=== PATIENT | male | born 1960 | race Caucasian/White ===

== ENCOUNTER 2025-03-15 11:58 | Outpatient (OUT) | payer OTHER, SELFPAY ==
--- OUTSIDE RECORDS SUMMARY | 2025-03-12 19:21 | XMS_ITS | Continuity of Care Document ---
Author Organization [facility] Address [address] [place] [address] Phone Care Team Providers Care Finance Lecturer Name Role Phone Martín Santhosh Alarcon DO Primary Care Provider Basil Sloan DO Attending Provider [phone] Care Teams Patient Care Team Team Status: Active Member Role/Relationship Status Dates Santhosh Resendiz DO Primary Care Provider Active Visit Care Team Team Status: Inactive Member Role/Relationship Status Dates Santhosh Resendiz DO Primary Care Provider Active St art: March 08, 2025 End: March 08, 2025Basil Sloan DOAttending ProviderActiveStart: March 08, 2025 End: March 08, 2025 Visit Care Team Team Status: Inactive Member Role/Relationship Status Dates Santhosh Resendiz DO Primary Care Provider Active St art: March 08, 2025 End: March 08, 2025Basil Sloan DOAttending ProviderActiveStart: March 08, 2025 End: March 08, 2025 Visit Care Team Team Status: Inactive Member Role/Relationship Status Dates Santhosh Resendiz DO Primary Care Provider Active St art: March 11, 2025 End: March 11, 2025Basil Sloan DOAttending ProviderActiveStart: March 11, 2025 End: March 11, 2025 Patient Care Team Team Status: Inactive Member Role/Relationship Status Dates Santhosh Resendiz DO Primary Care Provider Active St art: March 12, 2025 End: March 12, 2025Basil Sloan DOAttending ProviderActiveStart: March 12, 2025 End: March 12, 2025 Chief Complaint and Reason for Visit Chief Complaint Admit Date NEW RT SHOULDER INJURY MRI NOM[facility] March 08, 2025 8:49am M25.511 - Pain in right shoulder Decembe r 2024 8:52am M19.011 M75.101. March 11, 2025 2 :55pm Right shoulder pain right should osteart hritis March 12, 2025 10:05am Reason for Visit Admit Date Bicipital tendinitis, right shoulder Dec ember 2024 8:49am Primary osteoarthritis, right shoulder D ecember 2024 8:49am Tear of right infraspinatus tendon Decem xiao 2024 8:49am Tear of right supraspinatus tendon Decem xiao 2024 8:49am Allergies, Adverse Reactions, Alerts Allergen Type Severity Reaction Last Updated Verified Status Comments No Allergy Information Available Allergy Unknown Unknown Reaction March 08, 2025 9:07am Yes Active no allergy to Lasix Social History Smoking Status Unknown if ever smoked Observation Status Observation Response Date of Response Legal Sex Male (finding) Sex Assigned At [facility] 1960 Problems Active Problems Problem Diagnosis/Recorded Date Onset Date Stat Primary osteoarthritis, right shoulder March 08 025 9:36am Unknown Active Tear of right supraspinatus tendon March 08, 2025 9:34am Unknown Active Tear of right infraspinatus tendon March 08, 2025 9:34am Unknown Active Bicipital tendinitis, right shoulder March 08 9:39am Unknown Active Right shoulder pain March 08, 2025 7:27am Unknown Active Medications Medication Status Dose Units Route Directions Qty Days Refills S tart Date Stop Date End Date Reason(s) Instructions Adherence Atorvastatin 10 mg tablet Active 10 MG PO Daily March 08, 2025 12:00amUnknownDiltiazem Hcl 240 mg capsule,extended release 24hrActiveMGPODecember 2024 12:00amUnknownPhentermine 37.5 mg tabletActive MGPODecemb2024 12:00amUnknownIrbesartan-Hydrochlorothiazide 300-12.5 mg tabletActiveTABPODecember 2024 12:00amUnknownHydrochlorothiazide 12.5 mg tabletActiveMGPODecember 2024 12:00amUnknownAspirin 81 mg qvehzqGyvqef45SF PODailyDecemb2024 12:00amUnknown Procedures Procedure Date Performed Status XR shoulder RT min 2V* March 08, 2025 8:52am completed CT shoulder RT wo con March 11, 2025 3:01pm completed Relevant Diagnostic Tests and/or Laboratory Data Laboratory Results Test Collection Date/Time Result Date/Time Result Interpretation Reference Range Result Comment Performing Site Corrected White Blood Count March 12, 2025 10:31am March 12, 2025 11:54am 5.5 10*3/uL 4.1-10.5[facility] [id number] [address] [facility] 35543Vetyszjdtph WBC CountDecemb2024 10:31amDecember 2024 11:54am5.5 10*3/uL4.1-10.5FHol[facility] [id number] [address] [place] [address] 11559Bpp Blood CountDecember 2024 10:31amDecember 2024 11:54am4.80 10*6/uL3.90-5.60[facility] [id number] [address] [place] [address] 37507PrnjloeufpHwjveyig 2024 10:31amDecember 2024 11:54am 14.3 g/dL13.0-17.0[facility] [id number] [address] [place] [address] 61622AydtlasxibTkzemreb 2024 10:31amDecember 2024 11:54am 40.8 %38.8-50.0[facility] [id number] [address] [place] [address] 92531Mwzt Corpuscular VolumeDecember 2024 10:31amDecember 2024 11:54am85.1 fL83.5-101[facility] [id number] [address] [place] [address] 23033Hnpw Corpuscular HemoglobinDecember 2024 10:31amDecember 2024 11:54am29.7 pg27.5-35.2FHol[facility] [id number] [address] [facility] 13347Umod Corpuscular Hemoglobin ConcentMarch 12, 2025 10:31am March 12, 2025 11:54am35.0 g/dL32.5-35.6FHol[facility] [id number] [address] [facility] 70662Yai Cell Distribution WidthMarch 12, 2025 10:31amMarch 12, 2025 11:54am13.2 %12.0-14.8[facility] [id number] [address] [facility] 69002Zevfeueb CountMarch 12, 2025 10:31amMarch 12, 2025 11:83dk215 10*3/vE524-356TfelqwslaOhiohealth [facility]ering[facility] [id number] [address] [facility] 18439Pkqw Platelet VolumeMarch 12, 2025 10:31amMarch 12, 2025 11:54am8.0 fL6.6-10.1FHol[facility] [id number] [address] [facility] 28620Kowsnjyyzuh (%) (Auto)March 12, 2025 10:31amMarch 12, 2025 11:54am63.7 %.[facility] [id number] [address] [facility] 27132Newqibekrzg (%) (Auto)March 12, 2025 10:31amDe2024 11:54am21.1 %.[facility] [id number] [address] [facility] 11219Kskjmnqao (%) (Auto)March 12, 2025 10:31amMarch 12, 2025 11:54am10.1 %.[facility] [id number] [address] [facility] 84560Micurymtiuc (%) (Auto)March 12, 2025 10:31amDe2024 11:54am4.1 %.[facility] [id number] [address] [facility] 49991Pdruwteai (%) (Auto)March 12, 2025 10:31amMarch 12, 2025 11:54am1.0 %.[facility] [id number] [address] [facility] 53724Phamdkrck RBC Relative Count (auto)March 12, 2025 10:31am March 12, 2025 11:54am0.2 /100{WBC}0-0.5FHol[facility] [id number] [address] [place] [address] 44699Ojfxxcjobzj # (Auto)March 12, 2025 10:31amMarch 12, 2025 11:54am3.5 10*3/uL1.8-7.7FHol[facility] [id number] [address] [place] [address] 05953Yscamnpcefu # (Auto)March 12, 2025 10:31amMarch 12, 2025 11:54am1.2 10*3/uL1.00-4.8[facility] [id number] [address] [facility] 42745Wdodxghuw # (Auto)March 12, 2025 10:31amMarch 12, 2025 11:54am0.6 10*3/uL0.0-0.8[facility] [id number] [address] [facility] 88048Sfnowqywoiu # (Auto)March 12, 2025 10:31amMarch 12, 2025 11:54am0.2 10*3/uL0.0-0.45[facility] [id number] [address] [place] [address] 52159Dwlqzfagr # (Auto)March 12, 2025 10:31amMarch 12, 2025 11:54am0.1 10*3/uL0.0-0.2FHol[facility] [id number] [address] [place] [address] 76121Szapukz LevelMarch 12, 2025 10:31amMarch 12, 2025 12:07ap810 mg/dLAbove high -210TMJ recommended reference rangeRandom Glucose Reference Range is dependent on time and content of last meal. Glucose of more than 200 mg/dL in a nonstressed, ambulatory subject supports the diagnosisof Diabetes Mellitus.[facility] [id number] [address] [facility] 64266Zrqgj Urea NitrogenDeceer 2024 10:31amDecember 2024 12:12pm17 mg/dL7-25[facility] [id number] [address] [facility] 90563VggsyyvibmRdpnrfma 2024 10:31amDecember 2024 12:12pm 0.72 mg/dL0.70-1.30[facility] [id number] [address] [facility] 75562Pgnzfafcx GFR (CKD-EPI)March 12, 2025 10:31amDece2024 12:12pm> 60.0 mL/MinOhiohealth Pickerington Methodist Hospital Ctr [id number] [address] [facility] 31251Bsbyxl LevelDecemb2024 10:31amDecember 2024 12:64jl509 mmol/S696-290CeqwhgbfqOhiohealth Pickerington [facility] [id number] [address] [facility] 55904Pbnufujll LevelDecember 2024 10:31amDecemb2024 12:12pm4.2 mmol/L3.5-5.1FHol[facility] [id number] [address] [facility] 46192Iroesfji LevelDece2024 10:31amDecember 2024 12:24ga324 mmol/M64-258DgwlqizpnOhiohealth Pickerington [facility] [id number] [address] [facility] 06349Bwbmpo Dioxide LevelDece2024 10:31amDecember 2024 12:12pm26.4 mmol/L21.0-31.0[facility] [id number] [address] [facility] 65418Cvlun GapDece2024 10:31amDece2024 12:12pm 10.8 mEq/L6.0-15.0[facility] [id number] [address] [facility] 09777Xslvrgq LevelDecember 2024 10:31amDecember 2024 12:12pm9.1 mg/dL8.6-10.3FHol[facility] [id number] [address] [facility] 47080Vqcay ProteinDecember 2024 10:31amDecember 2024 12:12pm6.7 g/dL6.4-8.9[facility] [id number] [address] [facility] 97873FfiierbHfaaoecl 2024 10:31amDecember 2024 12:12pm4.0 g/dL3.5-5.7FHol[facility] [id number] [address] [facility] 64691CrhweiadPmjigbmm 2024 10:31amDecember 2024 12:12pm2.7 g/dLOhiohealth [facility]ering[facility] [id number] [address] [facility] 53270Rbvnwtg/Globulin RatioDecember 2024 10:31amDecember 2024 12:12pm1.5FHolzer Health System [facility]tr [id number] [address] [facility] 33924Nzwln BilirubinDecember 2024 10:31amDecember 2024 12:12pm0.5 mg/dL0.3-1.0[facility] [id number] [address] [facility] 15733Khjboorif Amino Transf (AST/SGOT)March 12, 2025 10:31am March 12, 2025 12:12pm23 U/S51-54PhtjhuhbrOhiohealth Pickerington Methodist Hospital [facility]tr [id number] [address] [facility] 97363Gdzgzci Aminotransferase (ALT/SGPT)March 12, 2025 10:31am March 12, 2025 12:12pm32 U/L7-52[facility] [id number] [address] [facility] 22363Fdvafilg PhosphataseDecember 2024 10:31amDecember 2024 12:12pm63 U/F71-513VtelmosgcOhiohealth Pickerington Methodist Hospital [facility]tr [id number] [address] [facility] 80652Kvmtqiyd Creatinine Clearance (ChemDecember 2024 10:31am March 12, 2025 12:12pmN/[facility] [id number] [address] [place] [address] Diagnostic Imaging Reports Author Madi Rivera [facility] 2024 10:54amReport Dictated Date/TimeDictated ByStatusRadiology ReportDequail [facility] 2024 10:54am Madi Rivera II [facility] [address] [place] [address] XRay Report Signed Patient: Santhosh Zambrano MR#: [id number] : 1960 Acct:[id number] Age/Sex: 64 / M ADM Date: 5 Loc: [facility] Room: Type: [facility] Attending Dr: Basil Sloan DO Copies to: Basil Sloan DO~ Ordering Provider: Basil Sloan DO Date of Service: 03/08/25 XR/XR shoulder RT min 2V*: M25.511 - Pain in right shoulder XR shoulder RT min 2V* 03/08/2025 9:29 AM SIGNS AND SYMPTOMS: Fall, right shoulder pain PROTOCOL: 4 views of the right shoulder COMPARISON: 01/28/2025 FINDINGS: Hypertrophic changes are noted in the acromioclavicular joint. There is moderate narrowing of the ulnohumeral joint with spurring along the inferior margin of the articular surfaces. There is subcortical cystic change in the greater tuberosity of the humeral head suggesting underlying rotator cuff pathology. No fracture or dislocation. Visualized right hemithorax is intact XR/XR shoulder RT min 2V* IMPRESSION: Moderate degenerative changes are noted in the right shoulder with findings suggesting underlying rotator cuff pathology. No fracture or dislocation. Impression dictated by: Madi Rivera M.D. 03/08/2025 10:55 AM Dictation Location: [place] [address] Transcribed By: [facility] 03/08/25 1055 Dictated By: Madi Rivera II, MD 03/08/25 1054 Signed By: <Electronically signed by Madi Rivera II, MD in OV> 03/08/25 1055 Author Madi Rivera [facility] 2024 3:30pmReportDictated Date/TimeDictated ByStatusRadiology ReportDecequail run behavioral health 2024 3:30pmMadi Rivera II [facility] [place] [address] [place], [place] [address] CT Scan Report Signed Patient: Santhosh Zambrano MR#: [id number] : 1960 Acct:[id number] Age/Sex: 64 / M ADM Date: 5 Loc: CT Room: Type: [facility] CLI Attending Dr: Basil Sloan DO Copies to: Basil Sloan DO~ Ordering Provider: Basil Sloan DO Date of Service: 03/11/25 CT/CT shoulder RT wo con: M19.011 - Primary osteoarthritis, right shoulder CT shoulder RT wo con 03/11/2025 3:21 PM SIGNS AND SYMPTOMS: Preop right shoulder, osteoarthritis, supraspinatus tear TECHNIQUE: Multidetector CT axial slices of the right shoulder without IV contrast. Multiplanar and 3-D reformats were performed and viewed on a separate workstation and reviewed to further define anatomy and possible pathology. CT was performed with one or more of the following dose reduction techniques: Automated exposure control, adjustment of the mA and/or kV according to patient size, or use of iterative reconstruction technique. COMPARISON: 03/08/2025 FINDINGS: Similar hypertrophic changes are noted in the acromioclavicular joint. There is narrowing of the glenohumeral joint similar to the prior exam. Subcortical cystic change is noted at the greater tuberosity humeral head consistent with underlying rotator cuff pathology. There is mild cranial subluxation of the humeral head in respect to the glenoid with narrowing of the subacromial space consistent with underlying rotator cuff pathology. Degenerative changes are noted in the cervical spine. CT/CT shoulder RT wo con IMPRESSION: Osteoarthritic changes are noted in the right shoulder similar to the prior radiographs. Findings are consistent with underlying rotator cuff pathology. No fracture or dislocation. Impression dictated by: Madi Rivera M.D. 03/11/2025 3:34 PM Dictation Location: [place] [address] Transcribed By: MITA 03/11/25 1534 Dictated By: Madi Rivera II, MD 03/11/25 1530 Signed By: <Electronically signed by Madi Rivera II, MD in OV> 03/11/25 1534 Vital Signs Vital Reading Result Reference Range Collection Date/Time Height 69 [in_i] March 08, 2025 9:94awYlkcup902.73 kgDecember 2024 9:47amBMI (Body Mass Index)40.6 kg/b0Yjompetk 2024 9:47am Advance Directives Advance Directive Response Recorded Date/ Time Advance Directives No May 10:28am Insurance Providers Guarantor Trudy Harmon Address [address] [place] [phone] Info.Home Phone: Coverage Status Update:2025 Payer Group Member ID Coverage Type Subscriber Relationship to Subscriber Effective Date Expiration Date MMO Id: [id number] Heyman , P Id: [id number] [address] [phone] Home Phone: Email: [email or web address] [address] [place] [address] Work Phone: [facility] [employer] Id: [id number] Heyman , P Id: [id number] [address] [phone] Home Phone: Email: [email or web address] [employer] Id: [id number] Heyman , P Id: [id number] [address] [facility] [address] Home Phone: Email: [email or web address] Heyman , P Id: [id number] [address] [facility] [address] Home Phone: Email: [email or web address] Encounter Location(s) Arrival/Admit Date Discharge/Departure Date Discharge/Departure Disposition Provider(s) Departed Physician/ Provider Office Visit -[facility] March 08, 2025 8:49am March 08, 2025 9:55am Discharged to home care or self care (routine discharge) Basil Sloan DO Departed Clinical -XRay [facility] March 08, 2025 8:52am March 08, 2025 8:53am Discharged to home care or self care (routine discharge) Basil Sloan DO Departed Clinical -CT Scan [facility] March 11, 2025 2:55pm March 11, 2025 2:56pm Discharged to home care or self care (routine discharge) Basil Sloan DO Departed Clinical -Lab [facility] March 12, 2025 10:05am March 12, 2025 10:06am Discharged to home care or self care (routine discharge) Basil Sloan DO Recent Diagnosis Onset Date Admit Date Bicipital tendinitis, right shoulder Unknown March 08, 2025 8:49am Primary osteoarthritis, right shoulder Unknown March 08, 2025 8:49am Tear of right infraspinatus tendon Unknown March 08, 2025 8:49am Tear of right supraspinatus tendon Unknown March 08, 2025 8:49am Assessments Diagnosis Onset Date Resolution Status Admit Date Bicipital tendinitis, right shoulder acuteDecember 2024 8:49amPrimary osteoarthritis, right shoulderacute March 08, 2025 8:49amTear of right infraspinatus tendonacutece2024 8:49amTear of right supraspinatus tendonacuteDecember 2024 8:49am Plan of Treatment Author Basil Sloan [facility] HospitalAutholiver[facility]2024 10:28amDiscussed with the patient on his symptoms, exam, and imaging. Likely etiologies of the patient's symptoms were discussed. Patient has symptoms consistent with a right rotator cuff tear and right shoulder arthritis. We discussed surgical versus conservative treatment options. Surgery would include a rotator cuff repair versus a reverse shoulder arthroplasty. Given his activity level, I recommend a rotator cuff repair if he wishes to proceed with surgery. We did discuss the possibility of continued pain due to the degree of the arthritis. He no longer wishes to live in his current condition and wishes to proceed with surgery. We will proceed with a right shoulder arthroscopy with rotator cuff repair and biceps tenodesis. We discussed the risks, benefits, and alternatives to surgery in general, including the potential outcomes with foregoing treatment altogether. The risks include, but are not limited to, the risk of anesthesia up to and including , infection, bleeding, tendon damage, nerve damage, vascular damage, stiffness, weakness, loss of range of motion, arthrofibrosis, failure to alleviate symptoms, worsening of symptoms, continued pain, continued mechanical symptoms, arthritic pain, post traumatic arthritis, wound healing problems, formation of cutaneous scars secondary to surgical incisions, deep venous thrombosis, pulmonary embolism, reflex sympathetic dystrophy, unforeseen complications and the need for further surgery. The specific risks inherent to shoulder surgery were discussed further. These include, but are not limited to: failure of any repair (labrum, biceps, rotator cuff), symptomatic hardware, chondrolysis, fracture, instability (glenohumeral or acromioclavicular), unforeseen complications and the need for further or revision surgery. Management of any biceps pathology was also addressed. If the long head of the biceps is substantially torn, tenotomy versus tenodesis may be performed. Specific risks of biceps cosmetic deformity and/or spasm were discussed. In the event of an irreparable rotator cuff tear, partial repair/reconstruction with dermal allograft augmentation will be considered. We discussed in detail the rehabilitation associated with this procedure, in terms of frequency and duration. We discussed the use of the sling postoperatively, and the fact that driving a motor vehicle is not advisable while in the sling. The importance of proper rehabilitation in the overall outcome of the surgery was emphasized. The amount of time needed off from activities (work, school, sports, exercise, and leisure activity) was discussed. The patient understands that in no way does surgical intervention guarantee return to activities (athletic, work, leisure, etc.) at the pre-injury level. Guarantees were neither stated nor implied. The patient understands and has appropriate expectations. We did discuss the risks and benefits of forgoing treatment altogether, and living with symptoms as they are. The patient understood and wishes to proceed. Informed consent was obtained, questions were entertained and answered to the best of my ability. My biggest concern is his concomitant glenohumeral arthritis. We did state that he will continue to have pain from the arthritis however his range of motion and strength should very much improved. Procedure: right shoulder arthroscopy with rotator cuff repair and biceps tenodesis, possible augmentation Antibiotics: Ancef DVT ppx: Ambulation Same Day Surgery: Yes Bed: Regular OR bed, lateral pegboard, fishing pole Instruments needed: Arthrex rotator cuff anchors, biceps tenodesis kit Future Tests Future scheduled test information is unavailable Pending Tests Pending diagnostic test information is unavailable Future Visits Future appointment information is unavailable Future Procedures Future procedure information is unavailable Future Medications Future medication information is unavailable Patient Instructions Patient instructions are unavailable
== END 2025-03-15 11:59 | disposition home or self-care (01) ==
LOC: PST 11:58
PROVIDERS: Visit Provider Physician Assistant
DX: Z01.818 Encounter for other preprocedural examination (principal); M25.511 Pain in right shoulder; M19.011 Primary osteoarthritis, right shoulder

== ENCOUNTER 2025-03-18 10:46 | Day surgery (SDC) | payer OTHER, SELFPAY ==
[2025-03-18] VITALS (15 sets, daily range): BP systolic 128–172; BP diastolic 69–86; PULSE 62–83; TEMP 36.3–36.5; O2SAT 89–98; BMI 41.4
[2025-03-18 10:56] LABS: Hematocrit 43.8 % (42.0-54.0); Hemoglobin 14.9 g/dL (14.0-18.0); Immature Granulocytes Abs Auto 0.10 10^3/uL (0.00-0.03); Immature Granulocytes Pct Auto 1.5 % (0.0-0.5); Lymphocytes Absolute Auto 1.7 10^3/uL (1.2-3.8); Mean Corpuscular HGB Conc 34.0 g/dL (29.9-35.2); Mean Corpuscular Hemoglobin 29.3 pg (25.9-34.0); Mean Corpuscular Volume 86.2 fL (80.0-94.0); Platelet Count 274 10^3/uL (150-450); Red Blood Count 5.08 10^6/uL (4.70-6.10); White Blood Count 6.7 10^3/uL (4.0-11.0)
--- NOTE | 2025-03-18 12:23 | PC.NURSE ---
1212: timeout completed as documented. pt placed on 2L O2 via nasal cannula per policy,pt connected to vitals machine and positioned per anesthesia. block began at 1155 and was completed at 1210. pt tolerated well without complaints,vitals monitored throughout procedure. pt with bed in lowest position with siderails up and call light within reach. pt will be monitored until taken back to the OR.
[2025-03-18] MEDS: TRANEXAMIC ACID 1,000 MG in 0.9 % SODIUM CHLORIDE 100 ML 440 MG IV ×2 (12:34→13:43)
--- NOTE | 2025-03-18 13:48 | XR_ITS ---
[place] [id number] Patient Name: DONNELL PEREZ MRN: [id number] date: 1960 Sex: M Assigned Patient [facility]: [facility] Current Patient Location: Accession/Order Number: [id number] Exam Date: 03/18/2025 12:45 Report Date: 03/18/2025 21:10 At the request of: PORFIRIO MACIAS DO Procedure: XR shoulder RT 1V A single view right shoulder postoperative assessment Adequate reverse shoulder arthroplasty without hardware complication. Adequate bony alignment without acute displaced fracture. Soft tissue postsurgical changes. XR/XR shoulder RT 1V IMPRESSION: Uncomplicated reverse right shoulder arthroplasty Impression dictated by: Red Rice M.D. 03/18/2025 9:10 PM Dictation Location: [place] [address] Electronically authenticated by: [id number] Date: 03/18/2025 21:10
[2025-03-18] MEDS: BUPIVACAINE HCL 0.25% PF 25 MG/10 ML VIAL 20 ML INJ (14:07)
--- NOTE | 2025-03-18 14:23 | W.PM.OPNOTE ---
Surgery Operative Note Operative Note Procedure Date: 03/18/25 Time Out Performed: yes Pre-op Diagnosis: Right glenohumeral arthritis, right rotator cuff tear Post-op Diagnosis: same as pre-op Procedures performed: 1. Right reverse shoulder arthroplasty Anesthesia: DANICA Primary Surgeon: Basil Sloan Complications: none Estimated blood loss (mL): 100 Findings: Right glenohumeral arthritis, right rotator cuff tear Specimens: None Drains: none Indications for Procedures: Santhosh is a 64-year-old male who was seen outpatient for right shoulder pain. He rotator cuff tear and moderate glenohumeral arthritis. We discussed treatment options in depth including rotator cuff repair versus arthroplasty. He failed conservative management we discussed continued conservative management versus surgical intervention. Risks, benefits, complications, procedure detail, convalescence, reasonable expectations were discussed in length. All questions were answered. Patient wishes to pursue surgical intervention, and consent was obtained. Patient was scheduled for surgery. Detailed description of Procedure: Patient was evaluated in the preoperative area. The correct patient, procedure, laterality was confirmed. Patient underwent a peripheral nerve block by anesthesia staff. Patient was then transported back to the operative suite and positioned supine on the operative table. He then underwent general anesthesia with no complications. Patient was then positioned in a beachchair position. All bony prominences were well-padded. The head and neck were positioned in a comfortable stable position. The left shoulder was prepped and draped in normal sterile fashion. A timeout was performed. Patient received preoperative antibiotics as well as 1 g of IV TXA. The procedure began by making incision on the skin and the deltopectoral approach. The cephalic vein was identified in the interval between the deltoid and the pectoralis major was identified and opened. The lateral aspect of the conjoined tendon was mobilized and the subscapularis tendon was exposed as well as the 3 sisters blood vessels. The vessels were cauterized to ensure no bleeding throughout the surgery. The biceps tendon was found situated in the groove. This was dissected and tenotomized with the distal portion being tenodesed to the superior portion of the pectoralis major tendon. A complete subscapularis peel was performed as the shoulder was externally rotated. The shoulder was dislocated at this point and retractors were placed. Using an intramedullary guide, the appropriate neck cut was performed on the humerus. A protective guide was placed on the humerus. Next retractors were placed to expose the glenoid. The labrum was sharply debrided exposing the outer rim of the glenoid. Using a patient-specific guide, the starting pin was placed in the appropriate position on the glenoid. The glenoid was prepped appropriately and a press-fit glenoid component was placed using a central screw. Excellent fit was established with a component. Peripheral screws were placed to fix the glenoid component. Next, the templated glenosphere was placed and secured to the glenoid baseplate. Next the humerus was exposed again and humeral stem preparation was performed for an inlay humeral stem. A trial was placed. The shoulder was taken through range of motion and found to be stable and excellent range of motion. The trials were removed and the shoulder was irrigated. Final humeral implant and tray was placed and the shoulder was reduced again. Final range of motion confirmed excellent range of motion and excellent fit of the components. An intraoperative x-ray confirmed appropriate position of the components. The wound was copiously irrigated. Drill holes were placed in the lesser tuberosity and the subscapularis tendon was repaired to the lesser tuberosity. A nonabsorbable 0 FiberWire was used to close the deltopectoral interval in a running fashion. Subcutaneous skin was closed using 2-0 Monocryl. A 3-0 Monocryl was used for subcuticular running suture. Skin was closed with glue. A silver impregnated dressing was placed on the incision. A Cryo/Cuff and UltraSling was placed on the patient. Patient was then awoken from anesthesia and transported to PACU in stable condition. Counts are correct. Case was clean. No complications were encountered throughout the procedure. Postoperative plan: Patient will be discharged from PACU to home they will be seen by PT and OT post operatively in PACU. Patient will be no lifting in a sling to the operative extremity. Ambulation is encouraged to prevent blood clots. Dressing can be removed on postoperative day 7. Patient will follow-up in 10 to 14 days for evaluation. Outpatient therapy will start 4 weeks after surgery following reverse shoulder arthroplasty rehab protocol. 1. Tornier Perform Reverse Augmented baseplate 25mm, 15 degree augmentation 2. Tonier Perform Reverse 39 mm glenosphere +0 3. Tornier Perform humeral stem size 3 4. Tornier Perform humeral insert +3 thickness 5. Tornier screws 6.5 x 30 mm central, 5mm x 26 mm superior, 30 mm inferior, 22 mm anterior Basil Sloan DO Orthopedic Surgeon [facility] Senior [employer] Analyst: Chantelle Temple Attending Doc Confirm Attending Attestation: Yes
--- NOTE | 2025-03-18 15:13 | PC.NURSE ---
Patient is sleep but awakens with conversation and questions. Verbalizes no pain
== END 2025-03-18 17:18 | disposition home or self-care (01) ==
PROVIDERS: Anesthesiology; PCP Family Medicine; Visit Provider Physician Assistant
PROC: (CPT 1638; principal; 2025-03-18 12:00)
DX: M19.011 Primary osteoarthritis, right shoulder (principal); M75.101 Unspecified rotator cuff tear or rupture of right shoulder, not specified as traumatic; M25.511 Pain in right shoulder; M75.21 Bicipital tendinitis, right shoulder; S46.811A Strain of other muscles, fascia and tendons at shoulder and upper arm level, right arm, initial encounter; W18.39XA Other fall on same level, initial encounter; G47.33 Obstructive sleep apnea (adult) (pediatric); E78.5 Hyperlipidemia, unspecified; I10 Essential (primary) hypertension; I48.91 Unspecified atrial fibrillation
CPT/HCPCS: 23472; 36415; 64415; 73020; 85025; 97165; 97535; J0131; J0665; J0690; J1100; J1200; J1885; J2250; J2405; J2704; J2795; J3010